=== PATIENT | male | born 1965 | race Caucasian/White ===

== ENCOUNTER 2016-12-01 01:43 | Inpatient (IN) | payer OTHER ==
[2016-12-01] VITALS (17 sets, daily range): BP systolic 125–163; BP diastolic 63–93
[~2016-12-01] VITALS: Ht 185.4 cm; Wt 75.8 kg
[~2016-12-01 01:43] MED LIST: Baciguent TP; MOTRIN400 MG PO; OXYCODONE HCL5 MG PO
[2016-12-01 02:05] LABS: ADD MIUA? YES; BILIRUBIN NEGATIVE; BLOOD MODERATE; COLOR YELLOW ((YELLOW)); GLUCOSE (STRIP) NEGATIVE; KETONES NEGATIVE; LEUKOCYTES NEGATIVE; NITRITE NEGATIVE; PROTEIN (STRIP) 100; SPECIFIC GRAVITY 1.006 (1.000-1.030); UROBILINOGEN 0.2 MG/DL (0.2-1.0)
[2016-12-01 02:06] LABS: BASOPHIL COUNT 0.1 K/uL (0-0.1); EOSINOPHIL (%) 0.1 % (0-5); HEMATOCRIT 46.4 % (38.0-50.0); IMMATURE GRANULOCYTE (%) 0.6 % (0.0-0.7); INSTRUMENT ABS NEUTROPHIL CT 4.7 K/uL; LYMPHOCYTE COUNT 1.4 K/uL (1.0-2.8); MCH 32.6 PG (29.0-34.0); MCHC 34.5 G/DL (30.0-36.0); MCV 94.5 FL (86-99); MEAN PLAT.VOLUME 9.2 uM^3 (9.0-12.4); MONOCYTE (%) 8.6 % (3-12); MONOCYTE COUNT 0.6 K/uL (0-0.8); NEUTROPHIL (%) 69.4 % (45-76); NEUTROPHIL COUNT 4.7 K/uL (1.8-6.4); PLATELET COUNT 96 K/uL (156-360); RBC DIS.WIDTH-CV 13.2 % (11.8-14.6); RBC DIS.WIDTH-SD 46.1 % (39-53); RED BLOOD COUNT 4.91 M/uL (4.00-5.50); WHITE BLOOD COUNT 6.8 K/uL (4.1-10.2)
[2016-12-01 02:13] LABS: AMPHETAMINE NEGATIVE (500 ng/mL); BACTERIA NONE SEEN /HPF; BARBITURATES NEGATIVE (200 ng/mL); BENZODIAZEPINES NEGATIVE (150 ng/mL); COCAINE NEGATIVE (150 ng/mL); EPITHELIAL CELLS RARE /HPF; HYALINE CASTS 0-5 /LPF; INTERNAL CONTROLS VALID? YES; METHADONE NEGATIVE (200 ng/mL); METHAMPHETAMINE NEGATIVE (500 ng/mL); MUCUS TRACE /LPF; OPIATES (MORPHINE) NEGATIVE (100 ng/mL); OXYCODONE NEGATIVE (100 ng/mL); PHENCYCLIDINE NEGATIVE (25 ng/mL); PROPOXYPHENE NEGATIVE (300 ng/mL); RED BLOOD CELLS 0-5 /HPF (0-5); THC CANNABINOIDS NEGATIVE (50 ng/mL); TRICYCLIC ANTIDEPRESSANTS NEGATIVE (300 ng/mL); UCUL ADDED? NO; WHITE BLOOD CELLS 0-5 /HPF (0-5)
[2016-12-01 02:17] LABS: AMYLASE 72 IU/L (1-118); CHLORIDE 101 mEq/L (99-109); SODIUM 139 mEq/L (136-147)
[2016-12-01 02:18] LABS: GLUCOSE 113 mg/dL (70-99)
[2016-12-01 02:20] LABS: ANION GAP 14 MEQ/L (2-14)
[2016-12-01 02:21] LABS: SERUM ETHYL ALCOHOL 393 mg/dL
[2016-12-01 02:22] LABS: GFR ESTIMATE (CALCULATED) > 59 mL/min/
[2016-12-01 02:23] LABS: UREA NITROGEN (BUN) 3 mg/dL (9-23)
[2016-12-01 02:25] LABS: LIPASE 100 U/L (1.0-51.0)
[2016-12-01 03:33] LABS: INTER. NORMALIZED RATIO 1.1; PTT 31.5 (25-32)
[2016-12-01 09:20] LABS: HEMATOCRIT 38.8 % (38.0-50.0); MCH 32.4 PG (29.0-34.0); MCHC 33.8 G/DL (30.0-36.0); RBC DIS.WIDTH-CV 13.4 % (11.8-14.6); RED BLOOD COUNT 4.04 M/uL (4.00-5.50); WHITE BLOOD COUNT 5.5 K/uL (4.1-10.2)
[2016-12-01 09:29] LABS: INTER. NORMALIZED RATIO 1.1; PROTHROMBIN TIME 11.2 (9.2-11.2); PTT 29.7 (25-32)
[2016-12-01 09:45] LABS: MEAN PLAT.VOLUME 10.2 uM^3 (9.0-12.4); PLAT.SUFFICIENCY DECREASED
[2016-12-01 09:46] LABS: PLATELET COUNT 64 K/uL (156-360)
[2016-12-01 10:29] LABS: METH RESISTANT S AUREUS PCR NEGATIVE (NEGATIVE)
[2016-12-01 10:53] LABS: PROBE CHECK PASS; SPECIMEN PROCESSING CONTROL PASS
[2016-12-02] VITALS (15 sets, daily range): BP systolic 126–160; BP diastolic 76–97
[2016-12-02 05:52] LABS: ANION GAP 8 MEQ/L (2-14); CHLORIDE 95 MEQ/L (99-109); GFR ESTIMATE (CALCULATED) > 59 mL/min/; GLUCOSE 99 mg/dL (70-99); LIPASE 45 U/L (1.0-51.0); MAGNESIUM 1.6 mg/dl (1.3-2.7); POTASSIUM 4.6 MEQ/L (3.7-5.4); SAMPLE HEMOLYSIS CHECK 1; SAMPLE ICTERIC CHECK 0; SAMPLE LIPEMIA CHECK 0; UREA NITROGEN (BUN) 6 mg/dL (9-23)
[2016-12-02 05:59] LABS: SODIUM 132 MEQ/L (136-147)
[2016-12-02 06:29] LABS: EOSINOPHIL (%) 0 % (0-5); HEMATOCRIT 38.2 % (38.0-50.0); IMMATURE GRANULOCYTE (%) 0.5 % (0.0-0.7); MCH 33.3 PG (29.0-34.0); MCHC 35.1 G/DL (30.0-36.0); MCV 94.8 FL (86-99); MONOCYTE (%) 15.2 % (3-12); MONOCYTE COUNT 1.3 K/uL (0-0.8); NEUTROPHIL (%) 72.7 % (45-76); PLATELET COUNT 83 K/uL (156-360); RBC DIS.WIDTH-CV 13.1 % (11.8-14.6); RBC DIS.WIDTH-SD 45.3 % (39-53); RED BLOOD COUNT 4.03 M/uL (4.00-5.50)
[2016-12-02 06:36] LABS: WHITE BLOOD COUNT 8.3 K/uL (4.1-10.2)
[2016-12-03] VITALS (7 sets, daily range): BP systolic 138–170; BP diastolic 84–120
[2016-12-03 07:18] LABS: EOSINOPHIL (%) 0 % (0-5); HEMATOCRIT 38.5 % (38.0-50.0); IMMATURE GRANULOCYTE (%) 0.6 % (0.0-0.7); IMMATURE GRANULOCYTE COUNT 0.1 K/uL; INSTRUMENT ABS NEUTROPHIL CT 7.6 K/uL; LYMPHOCYTE COUNT 1.2 K/uL (1.0-2.8); MCH 32.1 PG (29.0-34.0); MCV 94.4 FL (86-99); MEAN PLAT.VOLUME 10.3 uM^3 (9.0-12.4); MONOCYTE (%) 11.7 % (3-12); MONOCYTE COUNT 1.2 K/uL (0-0.8); NEUTROPHIL (%) 75.7 % (45-76); NEUTROPHIL COUNT 7.6 K/uL (1.8-6.4); RBC DIS.WIDTH-CV 12.9 % (11.8-14.6); RED BLOOD COUNT 4.08 M/uL (4.00-5.50)
[2016-12-03 07:20] LABS: PLATELET COUNT 112 K/uL (156-360)
[2016-12-03 07:25] LABS: ANION GAP 10 MEQ/L (2-14); CHLORIDE 93 MEQ/L (99-109); GFR ESTIMATE (CALCULATED) > 59 mL/min/; GLUCOSE 108 mg/dL (70-99); SAMPLE HEMOLYSIS CHECK 0; SAMPLE ICTERIC CHECK 0; SAMPLE LIPEMIA CHECK 0; SODIUM 131 MEQ/L (136-147); UREA NITROGEN (BUN) 8 mg/dL (9-23)
[2016-12-03 07:29] LABS: MAGNESIUM 1.9 mg/dl (1.3-2.7); POTASSIUM 3.6 MEQ/L (3.7-5.4)
[2016-12-03] MEDS ORDERED: CYCLOBENZAPRINE10 MG PO (07:49)
[2016-12-03] MEDS ORDERED: HYDROCODON-ACE1 EAC7 PO (07:49)
[2016-12-04 04:41] VITALS: BP 182/86
[2016-12-04 05:34] LABS: EOSINOPHIL (%) 0.1 % (0-5); HEMATOCRIT 35.1 % (38.0-50.0); IMMATURE GRANULOCYTE (%) 0.4 % (0.0-0.7); INSTRUMENT ABS NEUTROPHIL CT 6.1 K/uL; LYMPHOCYTE COUNT 1.6 K/uL (1.0-2.8); MCH 33.2 PG (29.0-34.0); MCV 94.9 FL (86-99); MEAN PLAT.VOLUME 10.3 uM^3 (9.0-12.4); MONOCYTE (%) 12.5 % (3-12); MONOCYTE COUNT 1.1 K/uL (0-0.8); NEUTROPHIL (%) 68.4 % (45-76); NEUTROPHIL COUNT 6.1 K/uL (1.8-6.4); PLATELET COUNT 105 K/uL (156-360); RBC DIS.WIDTH-CV 12.6 % (11.8-14.6); RBC DIS.WIDTH-SD 43.9 % (39-53)
[2016-12-04 05:57] LABS: ANION GAP 11 MEQ/L (2-14); CHLORIDE 98 MEQ/L (99-109); GFR ESTIMATE (CALCULATED) > 59 mL/min/; GLUCOSE 96 mg/dL (70-99); MAGNESIUM 1.6 mg/dl (1.3-2.7); POTASSIUM 3.4 MEQ/L (3.7-5.4); SAMPLE HEMOLYSIS CHECK 0; SAMPLE ICTERIC CHECK 0; SAMPLE LIPEMIA CHECK 0; SODIUM 134 MEQ/L (136-147); UREA NITROGEN (BUN) 8 mg/dL (9-23)
[2016-12-04 08:00] VITALS: BP 160/92
[2016-12-04 09:00] LABS: BASE EXCESS 4.8 mEq/L (-3 to +3); BICARBONATE 27.9 mEq/L (22-26); CARBOXY HGB 2.8 % (0-5); COMMENTS - BLOOD GASES A+C+; DEVICE RA; METHEMOGLOBIN 1.6 % (0-1.5); PCO2 35 mm Hg (35-45); PO2 75 mm Hg (80-100); SITE RR; TOTAL RESP RATE 14 resp/min; pH 7.51 (7.35-7.45)
[2016-12-04 12:22] VITALS: BP 130/88
[2016-12-04 13:11] LABS: ALKALINE PHOSPHATASE 58 IU/L (3-129); DIRECT BILIRUBIN 0.4 mg/dL (0.0-0.3); TOTAL BILIRUBIN 1.8 MG/DL (0.0-1.0)
[2016-12-04 17:30] VITALS: BP 122/80
[2016-12-04 20:02] VITALS: BP 181/95
[2016-12-04 23:25] VITALS: BP 150/77
[2016-12-05 04:51] VITALS: BP 179/99
[2016-12-05 05:34] LABS: BASOPHIL COUNT 0.1 K/uL (0-0.1); EOSINOPHIL (%) 1.5 % (0-5); EOSINOPHIL COUNT 0.1 K/uL (0-0.3); HEMATOCRIT 33.1 % (38.0-50.0); IMMATURE GRANULOCYTE (%) 0.1 % (0.0-0.7); INSTRUMENT ABS NEUTROPHIL CT 4.2 K/uL; LYMPHOCYTE COUNT 1.9 K/uL (1.0-2.8); MCH 32.7 PG (29.0-34.0); MCHC 34.1 G/DL (30.0-36.0); MCV 95.7 FL (86-99); MONOCYTE (%) 16.1 % (3-12); MONOCYTE COUNT 1.2 K/uL (0-0.8); NEUTROPHIL (%) 56.2 % (45-76); NEUTROPHIL COUNT 4.2 K/uL (1.8-6.4); PLATELET COUNT 102 K/uL (156-360); RBC DIS.WIDTH-CV 12.5 % (11.8-14.6); RBC DIS.WIDTH-SD 43.8 % (39-53); RED BLOOD COUNT 3.46 M/uL (4.00-5.50); WHITE BLOOD COUNT 7.5 K/uL (4.1-10.2)
[2016-12-05 05:47] LABS: CHLORIDE 100 mEq/L (99-109); POTASSIUM 3.2 mEq/L (3.7-5.4); SODIUM 135 mEq/L (136-147)
[2016-12-05 05:50] LABS: GLUCOSE 83 mg/dL (70-99)
[2016-12-05 05:51] LABS: ANION GAP 8 MEQ/L (2-14); TOTAL BILIRUBIN 1.4 mg/dL (0.0-1.0)
[2016-12-05 05:53] LABS: ALKALINE PHOSPHATASE 53 IU/L (3-129); GFR ESTIMATE (CALCULATED) > 59 mL/min/
[2016-12-05 05:54] LABS: MAGNESIUM 1.6 mg/dL (1.3-2.7); UREA NITROGEN (BUN) 6 mg/dL (9-23)
[2016-12-05 07:31] VITALS: BP 163/82
[2016-12-05 11:13] VITALS: BP 157/85
[2016-12-05 16:42] VITALS: BP 136/81
[2016-12-05 20:00] VITALS: BP 134/79
[2016-12-06 00:30] VITALS: BP 143/81
[2016-12-06 04:56] LABS: EOSINOPHIL (%) 1.6 % (0-5); EOSINOPHIL COUNT 0.1 K/uL (0-0.3); HEMATOCRIT 33.2 % (38.0-50.0); IMMATURE GRANULOCYTE (%) 0.4 % (0.0-0.7); INSTRUMENT ABS NEUTROPHIL CT 4.1 K/uL; LYMPHOCYTE COUNT 1.4 K/uL (1.0-2.8); MCHC 33.7 G/DL (30.0-36.0); MCV 94.9 FL (86-99); MEAN PLAT.VOLUME 10.2 uM^3 (9.0-12.4); MONOCYTE (%) 18.6 % (3-12); MONOCYTE COUNT 1.3 K/uL (0-0.8); NEUTROPHIL (%) 58.5 % (45-76); NEUTROPHIL COUNT 4.1 K/uL (1.8-6.4); PLATELET COUNT 132 K/uL (156-360); RBC DIS.WIDTH-CV 12.4 % (11.8-14.6); RBC DIS.WIDTH-SD 43.3 % (39-53)
[2016-12-06 05:10] LABS: CHLORIDE 104 mEq/L (99-109); POTASSIUM 2.9 mEq/L (3.7-5.4); SODIUM 137 mEq/L (136-147)
[2016-12-06 05:11] LABS: MAGNESIUM 1.6 mg/dL (1.3-2.7)
[2016-12-06 05:13] LABS: GLUCOSE 95 mg/dL (70-99)
[2016-12-06 05:14] LABS: ANION GAP 9 MEQ/L (2-14); TOTAL BILIRUBIN 1.2 mg/dL (0.0-1.0)
[2016-12-06 05:16] LABS: ALKALINE PHOSPHATASE 54 IU/L (3-129); GFR ESTIMATE (CALCULATED) > 59 mL/min/
[2016-12-06 05:31] LABS: UREA NITROGEN (BUN) 8 mg/dL (9-23)
[2016-12-06 08:02] VITALS: BP 153/86
[2016-12-06 11:49] VITALS: BP 134/81
[2016-12-06] MEDS ORDERED: NICOTINE PATCH1 EAC2 TD (13:49)
[2016-12-06] MEDS ORDERED: THERAGRAN1 TABLET PO (13:49)
[2016-12-06] MEDS ORDERED: THIAMINE HCL100 MG PO (13:49)
[2016-12-06] MEDS ORDERED: DURICEF1 GM PO (13:49)
[2016-12-06] MEDS ORDERED: FOLBEE PLUS TABL5 MG PO (13:49)
== END 2016-12-06 16:32 | disposition home or self-care (01) | DRG 471 ==
LOC: TRA 01:43 → SDC 04:46 → TRA 04:46 → 4WEST 07:39 → 3EAST 07:39 → 2SOUTH 07:39 → 4WEST 08:49 → 3EAST 12-02 20:01
PROVIDERS: Emergency Medicine; Internal Medicine; Internal Medicine Nephrology; Neurological Surgery
PROC: 30233R1 Transfusion of Nonautologous Platelets into Peripheral Vein, Percutaneous Approach (ICD-10-PCS; principal; 2016-12-01)
PROC: 30233L1 Transfusion of Nonautologous Fresh Plasma into Peripheral Vein, Percutaneous Approach (ICD-10-PCS; principal; 2016-12-01)
PROC: 00NW0ZZ Release Cervical Spinal Cord, Open Approach (ICD-10-PCS; principal; 2016-12-01)
PROC: 0R910ZZ Drainage of Cervical Vertebral Joint, Open Approach (ICD-10-PCS; principal; 2016-12-01)
PROC: 0RB30ZZ Excision of Cervical Vertebral Disc, Open Approach (ICD-10-PCS; 2016-12-02)
PROC: 0RG10A0 Fusion of Cervical Vertebral Joint with Interbody Fusion Device, Anterior Approach, Anterior Column, Open Approach (ICD-10-PCS; 2016-12-02)
PROC: 01N10ZZ Release Cervical Nerve, Open Approach (ICD-10-PCS; 2016-12-02)
DX: S12.500A Unspecified displaced fracture of sixth cervical vertebra, initial encounter for closed fracture (principal); S14.159A Other incomplete lesion at unspecified level of cervical spinal cord, initial encounter; S22.41XA Multiple fractures of ribs, right side, initial encounter for closed fracture; S12.600A Unspecified displaced fracture of seventh cervical vertebra, initial encounter for closed fracture; S60.011A Contusion of right thumb without damage to nail, initial encounter; G93.40 Encephalopathy, unspecified; M54.12 Radiculopathy, cervical region; E83.42 Hypomagnesemia; D69.6 Thrombocytopenia, unspecified; F10.239 Alcohol dependence with withdrawal, unspecified; Y90.8 Blood alcohol level of 240 mg/100 ml or more; J44.9 Chronic obstructive pulmonary disease, unspecified; B99.9 Unspecified infectious disease; E72.20 Disorder of urea cycle metabolism, unspecified; F17.210 Nicotine dependence, cigarettes, uncomplicated; V49.50XA Passenger injured in collision with unspecified motor vehicles in traffic accident, initial encounter
CPT/HCPCS: 36600; 70450; 70498; 70553; 71010; 71260; 72020; 72040; 72125; 72129; 72132; 73130; 74177; 76000; 80048; 80053; 80076; 80202; 81003; 82140; 82150; 82150 91; 82607; 82746; 82803; 83690; 83735; 84100; 85025; 85027; 85610; 85730; 86140; 86900; 86901; 86920; 87040; 87641; 94799; 99202; 99281; 99285; C1713; C1821; G0480; J0330; J0690; J0696; J1030; J1170; J1580; J2060; J2250; J2370; J2405; J2710; J2930; J3010; J3370; J3411; J3475; J3480; J7030; J7050; P9017; P9035; S0020